=== PATIENT | female | born 1985 | race African-American/Black ===

== ENCOUNTER 2016-12-18 20:44 | Emergency (ER) | payer MEDICAID, OTHER ==
[~2016-12-18] VITALS: Ht 162.6 cm; Wt 81.0 kg
[2016-12-19] MEDS ORDERED: IBUPROFEN 600MG TABLET PO ONE (01:15)
[2016-12-19 01:40] VITALS: BP 109/56
== END 2016-12-19 03:16 | disposition home or self-care (01) ==
LOC: ER 12-19 02:02
DX: S99.821A Other specified injuries of right foot, initial encounter (principal); X50.1XXA Overexertion from prolonged static or awkward postures, initial encounter; Y93.89 Activity, other specified; Y92.488 Other paved roadways as the place of occurrence of the external cause; R03.0 Elevated blood-pressure reading, without diagnosis of hypertension; F17.210 Nicotine dependence, cigarettes, uncomplicated
CPT/HCPCS: 73630; 81025; 99284